=== PATIENT | female | born 1995 | race African-American/Black ===

== ENCOUNTER 2018-05-27 10:55 | Emergency (ER) | payer OTHER ==
[~2018-05-27] VITALS: Ht 165.1 cm; Wt 82.0 kg
[2018-05-27 11:17] VITALS: BP 128/74
== END 2018-05-27 16:04 | disposition left against medical advice (07) ==
LOC: ER 12:42
DX: Z53.21 Procedure and treatment not carried out due to patient leaving prior to being seen by health care provider (principal)

== ENCOUNTER 2020-11-30 07:48 | Emergency (ER) | payer OTHER ==
[~2020-11-30] VITALS: Ht 172.7 cm; Wt 61.0 kg
[2020-11-30] MEDS ORDERED: ACETAMINOPHEN 325MG TABLET PO STA (08:28)
[2020-11-30] MEDS ORDERED: METOCLOPRAMIDE HCL 10MG/2ML VIAL IV ONE (08:30)
[2020-11-30] MEDS ORDERED: LEVETIRACETAM 1000MG PREMIX 100 ML IV ONE (08:30)
[2020-11-30 09:05] LABS: CLARITY URINE CLEAR (CLEAR); COLOR URINE YELLOW (YELLOW); KETONES URINE TRACE (NEGATIVE); LEUKOCYTE ESTERASE URINE NEGATIVE (NEGATIVE); NITRITE URINE NEGATIVE (NEGATIVE); OCCULT BLOOD URINE TRACE (NEGATIVE); PROTEIN URINE 1+ (NEGATIVE); SPECIFIC GRAVITY URINE 1.017 (1.005-1.030); UROBILINOGEN URINE 0.2 E.U./dL (0.2-1.0)
[2020-11-30 09:07] LABS: CHLORIDE 105 mEq/L (98-107); HEMATOCRIT. 36.6 % (36.0-48.0); HEMOGLOBIN. 12.7 g/dL (12.0-16.0); MEAN CORPUSCULAR VOLUME 86.2 fL (81.0-99.0); MEAN PLATELET VOLUME 9.1 fl (7.4-10.4); PLATELET 163 x1000/uL (130-400); RED BLOOD CELL COUNT 4.24 mill/uL (4.2-5.4); RED CELL DISTRIBUTION WIDTH 13.5 % (11.6-14.6)
[2020-11-30 09:11] LABS: ETHANOL BLOOD < 10 mg/dL
[2020-11-30 09:25] LABS: *AMPHETAMINES SCREEN URINE NEGATIVE (NEGATIVE); *BARBITURATES SCREEN URINE NEGATIVE (NEGATIVE)
[2020-11-30 09:26] LABS: *BENZODIAZEPINES SCREEN URINE NEGATIVE (NEGATIVE); *COCAINE SCREEN URINE NEGATIVE (NEGATIVE); METHADONE URINE SCREEN NEGATIVE (NEGATIVE); OPIATES URINE SCREEN NEGATIVE (NEGATIVE); PHENCYCLIDINE URINE SCREEN NEGATIVE (NEGATIVE)
[2020-11-30 09:35] LABS: CANNABINOID URINE SCREEN PRESUMTIVE POSITIVE (NEGATIVE)
[2020-11-30 10:01] LABS: PLATELET ESTIMATE NORMAL
[2020-11-30] MEDS ORDERED: KEPP500 MT (11:00)
[2020-11-30 11:51] VITALS: BP 119/73
== END 2020-11-30 11:53 | disposition home or self-care (01) ==
LOC: ER 07:48
DX: G40.909 Epilepsy, unspecified, not intractable, without status epilepticus (principal); F17.210 Nicotine dependence, cigarettes, uncomplicated
CPT/HCPCS: 36415; 70450; 80053; 80305; 80320; 81003; 81025; 84484; 85025; 85379; 93005; 96374; 96375; 99285; J1953; J2765; G0480

== ENCOUNTER 2021-03-01 17:33 | Emergency (ER) | payer OTHER ==
[~2021-03-01] VITALS: Ht 167.6 cm; Wt 77.0 kg
[~2021-03-01 17:33] MED LIST: KEPP500 MT
[2021-03-01] MEDS ORDERED: ACETAMINOPHEN 325MG TABLET PO STA (17:57)
[2021-03-01] MEDS ORDERED: LEVETIRACETAM 500MG PREMIX 100 ML IV ONE (18:00)
[2021-03-01 18:33] LABS: BASOPHILS % 0.5 % (0.0-2.0); EOSINOPHILS % 0.2 % (0.0-5.0); HEMATOCRIT. 39.6 % (36.0-48.0); HEMOGLOBIN. 13.4 g/dL (12.0-16.0); LYMPHOCYTES % 10.5 % (20.0-50.0); MEAN CORPUSCULAR HEMOGLOBIN 29.4 pg (28.0-32.0); MEAN CORPUSCULAR VOLUME 86.4 fL (81.0-99.0); MEAN PLATELET VOLUME 8.8 fl (7.4-10.4); MONOCYTES % 5.4 % (2.0-8.0); NEUTROPHILS % 83.4 % (40.0-76.0); PLATELET 192 x1000/uL (130-400); RED BLOOD CELL COUNT 4.58 mill/uL (4.2-5.4); RED CELL DISTRIBUTION WIDTH 14.3 % (11.6-14.6)
[2021-03-01 18:37] LABS: CHLORIDE 106 mEq/L (98-107)
[2021-03-01] MEDS ORDERED: HYDROCODONE/ACETAMINOPHEN 5/325MG TABLET PO ONE (22:00)
[2021-03-01] MEDS ORDERED: KEPP500 MT (22:09)
[2021-03-01] MEDS ORDERED: FC MT (22:13)
[2021-03-01] MEDS ORDERED: BUTA1CAP45 MT (22:13)
[2021-03-01 22:58] VITALS: BP 123/73
== END 2021-03-01 18:00 | disposition home or self-care (01) ==
LOC: ER 17:37
DX: G40.909 Epilepsy, unspecified, not intractable, without status epilepticus (principal)
CPT/HCPCS: 36415; 70450; 80053; 81025; 85025; 96365; 99285; J1953

== ENCOUNTER 2025-02-24 15:47 | Emergency (ER) | payer OTHER ==
[~2025-02-24] VITALS: Ht 165.1 cm; Wt 77.0 kg
[~2025-02-24 15:47] MED LIST changes: +BUTA1CAP45 MT
[2025-02-24 15:49] VITALS: O2SAT 100
[2025-02-24] MEDS: ACETAMINOPHEN 325MG TABLET PO ONE (17:01)
[2025-02-24] MEDS: LIDOCAINE 5% PATCH TOP SCH (17:02)
[2025-02-24 19:58] LABS: HCG SCREEN NEGATIVE
[2025-02-24] MEDS: KETOROLAC 30MG/ML VIAL IM ONE (20:12)
[2025-02-24] MEDS ORDERED: LIDOCAINE 5% PATCH TOP SCH (22:30)
[2025-02-24] MEDS ORDERED: LIDO-53 TP (22:46)
[2025-02-24] MEDS ORDERED: ACET-2708 MT (22:46)
[2025-02-24] MEDS: DEXAMETHASONE 4MG/ML 1ML VIAL IM ONE (23:19)
[2025-02-24 23:37] VITALS: BP 140/80; PULSE 68; RESP 14; TEMP 36.7; O2SAT 99
== END 2025-02-24 23:47 | disposition home or self-care (01) ==
LOC: ER 15:47 → CMPBEDREQ 02-25 07:20
DX: M54.9 Dorsalgia, unspecified (principal); Z79.899 Other long term (current) drug therapy
CPT/HCPCS: 99284; 84703; 72220; 96372; J1885; J1100